=== PATIENT | male | born 1955 | race Caucasian/White ===

== ENCOUNTER → 2016-11-17 | Outpatient (CLI) | payer OTHER ==
[~2016-11-17] MED LIST: AUGMENTIN875 MG PO; Colace PO; HYDROCHLOROTHIA25 MG PO; LOPRESSOR100 M1 PO; LOW DOSE ASPIRI81 M1 PO; LYRICA50 MG PO; NORVASC10 MG PO; PERCOCET 5/31 TABLET PO; Percocet 5/325,Endoc PO; SIMVASTATIN40 MG PO; TYLENOL REGULA325 MG PO; Vibramycin, Doryx PO; ZESTRIL20 MG PO
== END | disposition home or self-care (01) ==
LOC: RAD 09:53
DX: I71.01 Dissection of thoracic aorta (principal); R91.8 Other nonspecific abnormal finding of lung field
CPT/HCPCS: 71250

== ENCOUNTER → 2018-01-02 | Outpatient (CLI) | payer OTHER | END | disposition home or self-care (01) | LOC: RAD 12:43 | DX: I71.2 Thoracic aortic aneurysm, without rupture (principal); I25.10 Atherosclerotic heart disease of native coronary artery without angina pectoris; K76.0 Fatty (change of) liver, not elsewhere classified; M47.899 Other spondylosis, site unspecified; Z95.9 Presence of cardiac and vascular implant and graft, unspecified | CPT/HCPCS: 71250 ==

== ENCOUNTER → 2018-01-24 | Outpatient (CLI) | payer OTHER | END | disposition home or self-care (01) | LOC: RAD 08:40 | DX: I71.02 Dissection of abdominal aorta (principal); T82.868A Thrombosis due to vascular prosthetic devices, implants and grafts, initial encounter; K82.9 Disease of gallbladder, unspecified; I77.810 Thoracic aortic ectasia | CPT/HCPCS: 71275; 74174 ==